=== PATIENT | male | born 1975 | race Caucasian/White ===

== ENCOUNTER → 2016-08-21 | Outpatient (CLI) | payer BC | LOC: LAB 15:49 | DX: G89.29 Other chronic pain (principal); M54.5 Low back pain | CPT/HCPCS: 36415; 86812 ==

== ENCOUNTER 2021-10-27 02:03 | Emergency (ER) | payer BC ==
[2021-10-27] MEDS ORDERED: IBUPROFEN800 MG PO (02:46)
[2021-10-27] MEDS ORDERED: AMOXICILLIN500 M1 PO (02:46)
== END 2021-10-27 03:16 | disposition home or self-care (01) ==
LOC: ER1 02:03
DX: K02.9 Dental caries, unspecified (principal); K05.00 Acute gingivitis, plaque induced; F17.210 Nicotine dependence, cigarettes, uncomplicated
CPT/HCPCS: 99282

== ENCOUNTER → 2022-01-17 | Outpatient (CLI) | payer BC ==
[~2022-01-17] MED LIST: AMOXICILLIN500 M1 PO; IBUPROFEN800 MG PO
== END ==
LOC: LAB 10:56
DX: R79.89 Other specified abnormal findings of blood chemistry (principal)
CPT/HCPCS: 36415; 83970